=== PATIENT | female | born 1965 | race Two or more races ===

== ENCOUNTER 2018-01-13 09:33 | Day surgery (SDC) | payer OTHER ==
[2018-01-12 13:46] VITALS: BMI 30.9
[2018-01-13] MEDS ORDERED: PROPOFOL 20 ML ONE ×4 (10:08→12:37)
[2018-01-13] MEDS ORDERED: DEXAMETHASONE SOD PHOSPHATE 4 MG/1 ML VIAL ONE (12:13)
[2018-01-13] MEDS ORDERED: GLYCOPYRROLATE 0.2 MG/1 ML VIAL ONE (12:13)
[2018-01-13] MEDS ORDERED: ePHEDrine SULFATE 50 MG/1 ML AMPULE ONE (12:17)
[2018-01-13] MEDS ORDERED: KETOROLAC TROMETHAMINE 30 MG/1 ML VIAL ONE (12:53)
[2018-01-13] MEDS ORDERED: ONDANSETRON 4 MG/2 ML VIAL IVPUSH PRN ×2 (13:42→13:45)
[2018-01-13] MEDS ORDERED: oxyCODONE HCL 5 MG TABLET PO PRN ×3 (13:42→13:45)
[2018-01-13] MEDS ORDERED: IBUPROFEN 600 MG TABLET (FP) PO PRN (13:45)
[2018-01-13] MEDS ORDERED: ELECTROLYTE-148 SOLN 1,000 ML IV SCH (13:45)
[2018-01-13] MEDS ORDERED: LACTATED RINGERS SOLUTION 1,000 ML IV SCH (13:45)
[2018-01-13] MEDS ORDERED: IBUPROFEN 800 MG/8 ML IJ IVPB PRN (13:45)
--- NOTE | 2018-01-13 13:49 | HP ---
History & Physical Update - History History: No Change - Physical Physical: No Change - Assessment Assessment: No Change - Plan Plan: No Change (Consent signed and witnessed)
--- NOTE | 2018-01-13 13:56 | OP ---
Operative Note - Note: Operative Date: 01/13/18 Pre-Operative Diagnosis: 52yo P1 with fluid in the endometrial cavity and thick endometrium Operation: Hysteroscopy, D&C Findings: 1. Long stenotic cervical canal 2. Hematometra - 20cc dark blood came out 3. 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
[2018-01-13 14:35] VITALS: PULSE 76
[2018-01-13] MEDS ORDERED: oxyCODONE HCL 5 MG TABLET PO ONE (15:45)
[2018-01-13] MEDS ORDERED: ACETAMINOPHEN 325 MG TABLET (FP) PO ONE (15:45)
[2018-01-13 16:07] VITALS: BP 136/65; TEMP 98.7
--- NOTE | 2018-01-16 17:41 | PATH ---
Surgical Pathology Report Patient Name: TANA LOVE [facility]. Rec. #: [id number] /Age/Gender: 1965 (Age: 52) / F Account: [id number] Location: [facility] Taken: 01/13/2018 Received: 01/14/2018 Reported: 01/16/2018 Physicians: Ngoc Abreu M.D. Specimen(s) Received ENDOMETRIAL CURETTINGS Clinical History Benign endometrial hyperplasia Final Diagnosis ENDOMETRIAL CURETTINGS: FRAGMENTS OF SMOOTH MUSCLE BUNDLES, SUGGESTIVE OF SUBMUCOSAL LEIOMYOMA. ENDOMETRIAL STROMA WITH SCANTY GLANDS. SEPARATE ENDOCERVICAL TISSUE WITH SQUAMOUS METAPLASIA. Electronically Signed Rajwinder Scott M.D. Gross Description Received in formalin labeled "endometrial And nts. The formalin is filtered and the specimen is entirely submitted in one cassette. /01/14/2018 saudi01/14/2018
--- NOTE | 2018-01-19 13:44 | OP ---
DATE OF OPERATION: 01/13/2018 PREOPERATIVE DIAGNOSIS: A 52-year-old para 1 with fluid in endometrial cavity and thick endometrium. POSTOPERATIVE DIAGNOSIS: A 52-year-old para 1 with fluid in endometrial cavity and thick endometrium. OPERATION: Hysteroscopy, dilatation and curettage. 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 SURGEON: Ngoc Abreu MD ANESTHESIOLOGIST: Jackelyn Blank MD ANESTHESIA: MAC. SPECIMENS REMOVED: Endometrial curettings. DESCRIPTION OF THE OPERATIVE PROCEDURE: After ensuring informed consent patient was brought to the operating room where she was placed in dorsal lithotomy position. Perineum and vagina were prepped and draped in sterile fashion. The Symphion hysteroscope was assembled, white balanced and primed. The vagina was retracted with Wang retractors and the tenaculum was used to articulate the anterior lip of the cervix. Cervix was dilated with gradually increasing in size dilators to accommodate 6.3-mm hysteroscope which was introduced into the uterus atraumatically. Very long cervical canal was encountered and once the internal os was dilated approximately 20 mL of dark blood was released from the uterus. Uterine cavity was irregularly shaped with possibly partial uterine septum. No significant pathology otherwise was noted inside the uterine fundus except for some irregularity. The curettage was performed by using the Symphion resectoscope. The endometrial curettings were collected into the Symphion bag. Subsequently all instruments were removed from uterus,. cervix and vagina. Excellent hemostasis was noted. Estimated blood loss was 0 mL. Fluid deficit 150 mL. Patient received 500 mL of IV fluids and drained 150 mL of urine at the beginning of the procedure. Patient was positioned supine and brought to the recovery room in stable extubated condition. Bonnie [id number]
== END 2018-01-13 16:07 | disposition home or self-care (01) ==
LOC: JASU-SURG 09:33
PROVIDERS: ATTEND Obstetrics & Gynecology
PROC: 0UDB7ZX Extraction of Endometrium, Via Natural or Artificial Opening, Diagnostic (ICD-10-PCS; principal; 2018-01-13 10:30)
PROC: 0UJD8ZZ Inspection of Uterus and Cervix, Via Natural or Artificial Opening Endoscopic (ICD-10-PCS; 2018-01-13 10:30)
DX: N85.7 Hematometra (principal); N85.00 Endometrial hyperplasia, unspecified
CPT/HCPCS: 84703; 88305-TC; 94760